=== PATIENT | male | born 2005 | race Caucasian/White ===

== ENCOUNTER 2025-01-30 20:20 | Emergency (ER) | payer OTHER ==
[2025-01-30] MEDS: Take Home: Cephalexin 500 MG Cap, 6 Cap Pack PO ONE (21:30)
== END 2025-01-30 21:37 | disposition home or self-care (01) ==
LOC: VM.ED 20:20
DX: S91.341A Puncture wound with foreign body, right foot, initial encounter (principal); Z79.899 Other long term (current) drug therapy; W22.8XXA Striking against or struck by other objects, initial encounter
CPT/HCPCS: 73630-RT; 99283; A9270-GY

== ENCOUNTER 2025-03-25 20:38 | Emergency (ER) | payer OTHER ==
[2025-03-25] MEDS: Glucagon,Human Recombinant 1 MG Vial IM ONE (20:50)
== END 2025-03-25 21:43 | disposition short-term general hospital (02) ==
LOC: VM.ED 20:38
DX: T18.128A Food in esophagus causing other injury, initial encounter (principal)
CPT/HCPCS: 96372; 99283; 99284; J1610